=== PATIENT | male | born 1960 | race Caucasian/White ===

== ENCOUNTER 2017-01-08 09:53 | Emergency (ER) | payer OTHER ==
--- NOTE | 2017-01-08 10:32 | ED Physician Documentation ---
PD HPI CHEST PAIN - Stated complaint Stated Complaint: CHEST PAIN - Chief complaint Chief Complaint: Cardiac - History obtained from History obtained from: Patient - History of Present Illness Timing - onset: How many days ago (9) Timing - onset during: Light activity Timing - duration: Days (9) Timing - details: Gradual onset, Still present, Waxing and waning Pain level now: 6 Quality: Pressure, Sharp, Pain Location: Left jaw Radiation: Jaw, Neck Improved by: Rest Worsened by: Other (as the day progresses the pain worsens and is improved with rest) Associated symptoms: Shortness of air Similar symptoms before: Diagnosis (afib) Recently seen: Other (The patient had a cardioversion done in the beginning of December and he was in sinus for about 2 weeks.) - Additional information Additional information: 56 y/o male with a prior history of intermittent afib, DVT and PE is on xarolto and does not tolerate afib. He felt that he went back into afib about 9 days ago and he has pain in his jaw that worsens through the day and is improved in the morning. 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 Review of Systems Constitutional: reports: Fatigue. denies: Fever, Chills Eyes: denies: Decreased vision Ears: denies: Ear pain Nose: denies: Rhinorrhea / runny nose, Congestion Throat: reports: Other (jaw pain on the left). denies: Sore throat Cardiac: denies: Chest pain / pressure, Palpitations Respiratory: reports: Dyspnea. denies: Cough GI: denies: Abdominal Pain, Nausea, Vomiting : denies: Dysuria, Frequency PD PAST MEDICAL HISTORY - Past Medical History Cardiovascular: Deep vein thrombosis, Atrial fibrillation Respiratory: None, Shortness of breath Neuro: None Endocrine/Autoimmune: None GI: Ulcerative colitis : None, Kidney stones, Other HEENT: None Psych: Depression Musculoskeletal: None Derm: None - Past Surgical History Past Surgical History: Yes General: Appendectomy, Colonoscopy Ortho: Arthroscopic surgery, Carpal Tunnel surgery HEENT: Tonsil/Adenoidectomy - Present Medications Home Medications: Ambulatory Orders Medication Instructions Recorded Confirmed Mesalamine [Lialda] 2.4 gm ORAL DAILY 03/15/15 01/08/17 PARoxetine [Paxil] 20 mg ORAL DAILY 03/15/15 01/08/17 Rivaroxaban [Xarelto] 30 mg PO DAILY 09/19/16 01/08/17 Metoprolol Succinate 1 tab PO DAILY 01/08/17 01/08/17 - Allergies Allergies/Adverse Reactions: Allergies Allergy/AdvReac Type Severity Reaction Status Date / Time No Known Drug Allergies Allergy Verified 01/08/17 09:58 - Social History Does the pt smoke?: No Smoking Status: Never smoker Does the pt drink ETOH?: No Does the pt have substance abuse?: No - Immunizations Immunizations are current?: Yes PD ED PE NORMAL - Vitals Vital signs reviewed: Yes (normal ) - General General: Alert and oriented X 3, No acute distress, Well developed/nourished - HEENT HEENT: Atraumatic, PERRL, EOMI - Neck Neck: Supple, no meningeal sign, No bony TTP - Cardiac Cardiac: No murmur, Other (irregularly irregular rate and rhythm with 2/6 holosystolic murmer at LSB. ) - Respiratory Respiratory: No respiratory distress, Clear bilaterally - Abdomen Abdomen: Soft, Non tender - Back Back: No CVA TTP, No spinal TTP - Derm Derm: Normal color, Warm and dry, No rash - Extremities Extremities: No deformity, No edema - Neuro Neuro: No motor deficit, No sensory deficit - Psych Psych: Normal mood, Normal affect Results - Vitals Vitals: Vital Signs - 24 hr 01/08/17 01/08/17 01/08/17 09:55 10:34 11:34 Temperature 36.5 C 36.5 C Heart Rate 84 64 63 Respiratory 18 18 18 Rate Blood Pressure 120/75 118/67 101/86 H O2 Saturation 98 98 97 01/08/17 01/08/17 01/08/17 12:48 12:56 13:03 Temperature Heart Rate 70 74 65 Respiratory 12 18 16 Rate Blood Pressure 111/70 111/70 108/70 O2 Saturation 97 97 2 L 01/08/17 01/08/17 01/08/17 13:05 13:07 13:11 Temperature Heart Rate 77 79 68 Respiratory 16 16 22 Rate Blood Pressure 108/70 105/63 105/63 O2 Saturation 100 100 100 01/08/17 01/08/17 01/08/17 13:14 13:18 13:20 Temperature Heart Rate 75 72 76 Respiratory 18 28 H 22 Rate Blood Pressure 106/62 111/71 O2 Saturation 94 92 01/08/17 01/08/17 01/08/17 13:21 13:30 13:37 Temperature Heart Rate 74 72 78 Respiratory 20 20 20 Rate Blood Pressure 111/75 113/74 119/72 O2 Saturation 94 98 100 01/08/17 01/08/17 14:21 14:54 Temperature 36.6 C Heart Rate 82 73 Respiratory 18 20 Rate Blood Pressure 130/67 129/78 O2 Saturation 98 98 Oxygen O2 Source Room air Oxygen Flow Rate 2 - EKG (time done) 0959 Rate: Rate (enter#) (81) Rhythm: Atrial fibrillation Compare to prior EKG: Unchanged from prior EKG (07-03-16) Computer interpretation: Agree with computer 1322 Rate: Rate (enter#) (74) Rhythm: NSR, LAE, OSIEL Intervals: Prolonged [place] (borderline) Compare to prior EKG: Changed from prior EKG (SPT earlier today the rhythm has changed to sinus s/p cardioversion) Computer interpretation: Agree with computer - Labs Labs: Laboratory Tests 01/08/17 01/08/17 01/08/17 10:29 10:29 10:29 WBC 5.9 RBC 4.43 L Hgb 14.4 Hct 42.0 MCV 94.8 H MCH 32.5 H MCHC 34.3 RDW 13.7 Plt Count 220 MPV 8.1 Neut # 3.8 Lymph # 1.4 L [place] # 0.6 Eos # 0.1 Baso # 0.0 Absolute Nucleated RBC 0.00 Nucleated RBCs 0.0 Sodium 139 Potassium 4.2 Chloride 105 Carbon Dioxide 26 Anion Gap 8.0 BUN 27 H Creatinine 0.9 Estimated GFR (MDRD) 88 L Glucose 100 Calcium 9.3 Total Bilirubin 0.8 AST 24 ALT 30 Alkaline Phosphatase 56 Troponin I < 0.04 B-Natriuretic Peptide Total Protein 6.7 Albumin 3.8 Globulin 2.9 Albumin/Globulin Ratio 1.3 Lipase 12 L TSH Urine Color Urine Clarity Urine pH Ur Specific [place] Urine Protein Urine Glucose (UA) Urine Ketones Urine Occult Blood Urine Nitrite Urine Bilirubin Urine Urobilinogen Ur Leukocyte Esterase Ur Microscopic Review Urine Culture Comments 01/08/17 01/08/17 01/08/17 10:29 10:29 10:34 WBC RBC Hgb Hct MCV MCH MCHC RDW Plt Count MPV Neut # Lymph # [place] # Eos # Baso # Absolute Nucleated RBC Nucleated RBCs Sodium Potassium Chloride Carbon Dioxide Anion Gap BUN Creatinine Estimated GFR (MDRD) Glucose Calcium Total Bilirubin AST ALT Alkaline Phosphatase Troponin I B-Natriuretic Peptide 67 Total Protein Albumin Globulin Albumin/Globulin Ratio Lipase TSH 1.66 Urine Color DARK YELLOW Urine Clarity CLEAR Urine pH 6.5 Ur Specific [place] 1.015 Urine Protein NEGATIVE Urine Glucose (UA) NEGATIVE Urine Ketones TRACE Urine Occult Blood NEGATIVE Urine Nitrite NEGATIVE Urine Bilirubin NEGATIVE Urine Urobilinogen 0.2 (NORMAL) Ur Leukocyte Esterase NEGATIVE Ur Microscopic Review NOT INDICATED Urine Culture Comments NOT INDICATED - Rads (name of study) 2 view chest Radiology: Prelim report reviewed (Impression: Normal two-view chest radiography.), EMP read indepedently, See rad report Procedures - Procedural sedation Sedation prep: Informed consent, Time out completed, PE performed, AHA 2 - mild disease Sedation medications: propofol Patient status during sedation: Responds to tactile, Vitals remained stable, Maintained airway, Recovered uneventfully Sedation recovery: Recovered uneventfully, Back to baseline - IVC sono (time) 1020 Bedside IVC sono: IVC measures (cm) (2.24), IVC collapsed c insp (cm) (1.62), Collapsibility index (0.27), High CVP (borderline) - Cardioversion Attempt 1 Indication: Chest pain, Other (afib) Risks, benefits, alternatives explained to: Pt Prep: IV, O2, head of academic technology, Pulse ox, Airway equip Meds: Propofol CS via: Pads, AP approach Sync: 100j Post cardioversion rhythm: A-fib Performed by: ED Attempt 2 Indication: Chest pain, Other (afib) Risks, benefits, alternatives explained to: Pt Prep: IV, O2, head of academic technology, Pulse ox, Airway equip Meds: Propofol CS via: Pads, AP approach Sync: 150j Post cardioversion rhythm: A-fib Performed by: ED Attempt 3 Indication: Chest pain, Other (afib) Risks, benefits, alternatives explained to: Pt Prep: IV, O2, head of academic technology, Pulse ox, Airway equip Meds: Propofol CS via: Pads, AP approach Sync: 200j Post cardioversion rhythm: A-fib Performed by: ED Attempt 4 Indication: Chest pain, Other (afib) Risks, benefits, alternatives explained to: Pt Prep: IV, O2, head of academic technology, Pulse ox, Airway equip Meds: Propofol CS via: Anterolateral Sync: 200j Post cardioversion rhythm: A-fib Performed by: ED MD #5 Indication: Chest pain, Other (afib) Risks, benefits, alternatives explained to: Pt Prep: IV, O2, head of academic technology, Pulse ox, Airway equip Meds: Propofol CS via: Anterolateral Sync: 300j Post cardioversion rhythm: NSR Performed by: ED MD ANHTONY MEDICAL DECISION MAKING - ED course Complexity details: reviewed old records, reviewed results, re-evaluated patient , considered differential, d/w patient, d/w family ED course: 56 y/o male with symptomatic afib has jaw and chest pain associated with the afib. In consultation with the senior product development scientist Dr. Herrera in [place] [employer] for [place] she recommends cardioversion and follow up or follow up for cardioversion. The patient is symptomatic and would like to do the cardioversion. This is attempted with AP pads synconized and this is unsuccessful in 3 attempts with 100, 150 and 200 larry. The pads were switched to kayce-lateral and 200j failed and 300j was successful. The patient tolerated this well and felt improved at the conclusion of the cardioversion. We will take him off work for 5 days. Departure - Departure Disposition: 01 Home, Self Care Clinical Impression: Atrial fibrillation Qualifiers: Atrial fibrillation type: paroxysmal Qualified Code(s): I48.0 - Paroxysmal atrial fibrillation Condition: Stable Instructions: ED Paroxysmal Atrial Flutter, ED Cardioversion Follow-Up: Petros Lockett MD [Primary Care Provider] - Balaji Pa MD [Provider Admit Priv/Credential] - Forms: Activity restrictions Discharge Date/Time: 01/08/17 14:54
[2017-01-08 10:33] LABS: BASOPHILS % (AUTO) 0.6 %; EOSINOPHILS # (AUTO) 0.1 10^3/uL (0.0-0.7); EOSINOPHILS % (AUTO) 1.9 %; HGB - HEMOGLOBIN 14.4 g/dL (14.0-18.0); LYMPHOCYTES # (AUTO) 1.4 10^3/uL (1.5-3.5); LYMPHOCYTES % (AUTO) 23.3 %; MEAN CORPUSCULAR HEMOGLOBIN 32.5 pg (27.0-31.0); MEAN CORPUSCULAR HGB CONC 34.3 g/dL (32.0-36.0); MEAN CORPUSCULAR VOLUME 94.8 fL (80.0-94.0); MEAN PLATELET VOLUME 8.1 fL (7.4-11.4); MONOCYTES # (AUTO) 0.6 10^3/uL (0.0-1.0); MONOCYTES % (AUTO) 9.8 %; NEUTROPHILS # (AUTO) 3.8 10^3/uL (1.5-6.6); NEUTROPHILS % (AUTO) 64.4 %; RED BLOOD COUNT 4.43 10^6/uL (4.70-6.10); RED CELL DISTRIBUTION WIDTH 13.7 % (12.0-15.0); UNCORRECTED WHITE BLOOD COUNT 5.9 x10^3/uL; WHITE BLOOD COUNT 5.9 x10^3/uL (4.8-10.8)
[2017-01-08 10:52] LABS: BILIRUBIN,URINE NEGATIVE (NEGATIVE); PH,URINE 6.5 PH (5.0-7.5)
[2017-01-08 10:54] LABS: UA CHARGE (STRIP ONLY) YES; UR CULTURE IF IND NOT INDICATED
--- NOTE | 2017-01-08 10:57 | XRAY Preliminary Report ---
Exam: XR Chest 2 View PA/LAT IMPRESSION: Normal 2-view chest radiography. [facility] SITE ID: [id number]
--- NOTE | 2017-01-08 10:59 | XRAY Report ---
EXAM: CHEST RADIOGRAPHY EXAM DATE: 01/08/2017 10:42 AM. CLINICAL HISTORY: Chest pain . COMPARISON: 07/03/2016. TECHNIQUE: 2 views. FINDINGS: Lungs/Pleura: No focal opacities evident. No pleural effusion. No pneumothorax. Normal volumes. Mediastinum: Heart and mediastinal contours are unremarkable. Other: None. IMPRESSION: Normal 2-view chest radiography. [facility] Referring Provider Line: [phone] SITE ID: [id number]
[2017-01-08 11:13] LABS: ALBUMIN/GLOBULIN RATIO 1.3 (1.0-2.2); BILIRUBIN,TOTAL 0.8 mg/dL (0.2-1.0); CALCIUM 9.3 mg/dL (8.5-10.3); CREATININE 0.9 mg/dL (0.6-1.2); POTASSIUM 4.2 mmol/L (3.5-5.0); TOTAL PROTEIN 6.7 g/dL (6.7-8.2)
[2017-01-08] MEDS ORDERED: PROPOFOL 200 MG/20 ML VIAL IVP ONE ×2 (12:52→13:15)
[2017-01-08 14:59] VITALS: BP 129/78
== END 2017-01-08 14:54 | disposition home or self-care (01) ==
LOC: ED 09:53
DX: I48.0 Paroxysmal atrial fibrillation (principal); Z79.01 Long term (current) use of anticoagulants; Z86.718 Personal history of other venous thrombosis and embolism; Z86.711 Personal history of pulmonary embolism; Z87.19 Personal history of other diseases of the digestive system; Z87.442 Personal history of urinary calculi
CPT/HCPCS: 36415; 71020; 80053; 81001; 81003; 83690; 83880; 84443; 84484; 85025; 87086; 92960; 93005; 93010; 94770; 99284

== ENCOUNTER 2017-02-08 15:04 | Outpatient (CLI) | payer OTHER ==
[2017-02-08 15:25] LABS: BASOPHILS % (AUTO) 0.7 %; EOSINOPHILS # (AUTO) 0.3 10^3/uL (0.0-0.7); EOSINOPHILS % (AUTO) 5.2 %; HCT - HEMATOCRIT 42.4 % (42.0-52.0); HGB - HEMOGLOBIN 14.4 g/dL (14.0-18.0); LYMPHOCYTES # (AUTO) 1.6 10^3/uL (1.5-3.5); LYMPHOCYTES % (AUTO) 24.8 %; MEAN CORPUSCULAR HEMOGLOBIN 32.5 pg (27.0-31.0); MEAN CORPUSCULAR HGB CONC 33.9 g/dL (32.0-36.0); MEAN CORPUSCULAR VOLUME 95.8 fL (80.0-94.0); MEAN PLATELET VOLUME 8.4 fL (7.4-11.4); MONOCYTES # (AUTO) 0.7 10^3/uL (0.0-1.0); MONOCYTES % (AUTO) 10.4 %; NEUTROPHILS # (AUTO) 3.8 10^3/uL (1.5-6.6); NEUTROPHILS % (AUTO) 58.9 %; RED BLOOD COUNT 4.43 10^6/uL (4.70-6.10); RED CELL DISTRIBUTION WIDTH 13.6 % (12.0-15.0); UNCORRECTED WHITE BLOOD COUNT 6.5 x10^3/uL; WHITE BLOOD COUNT 6.5 x10^3/uL (4.8-10.8)
[2017-02-08 15:33] LABS: CALCIUM 9.3 mg/dL (8.5-10.3); CREATININE 1.3 mg/dL (0.6-1.2); POTASSIUM 4.5 mmol/L (3.5-5.0)
[2017-02-08 16:18] LABS: INR 1.6 (0.8-1.2); PT - PROTHROMBIN TIME 18.2 secs (9.9-12.6)
[2017-02-08 16:25] LABS: PARTIAL THROMBOPLASTIN TIME 35.8 secs (24.9-33.3)
== END 2017-02-08 15:05 | disposition home or self-care (01) ==
LOC: LAB 15:04
PROVIDERS: ATTEND Internal Medicine Cardiovascular Disease
DX: I48.0 Paroxysmal atrial fibrillation (principal)
CPT/HCPCS: 36415; 80048; 85025; 85610; 85730; 93005

== ENCOUNTER 2017-04-03 08:22 | Day surgery (SDC) | payer OTHER ==
[2017-04-03] MEDS ORDERED: LACTATED RINGERS 1,000 ML IV ONE (08:43)
[2017-04-03 10:33] VITALS: BP 100/46
== END 2017-04-03 08:23 | disposition home or self-care (01) ==
LOC: SDS 08:22
PROVIDERS: ATTEND Internal Medicine
PROC: 0DBE8ZX Excision of Large Intestine, Via Natural or Artificial Opening Endoscopic, Diagnostic (ICD-10-PCS; principal; 2017-04-03 09:30)
DX: K51.90 Ulcerative colitis, unspecified, without complications (principal); K57.30 Diverticulosis of large intestine without perforation or abscess without bleeding; K64.8 Other hemorrhoids; I48.91 Unspecified atrial fibrillation; Z79.01 Long term (current) use of anticoagulants; Z86.010 Personal history of colon polyps
CPT/HCPCS: 45380; 88305; J7120

== ENCOUNTER 2017-05-30 08:26 | Outpatient (CLI) | payer OTHER | END 2017-05-30 08:27 | disposition short-term general hospital (02) | LOC: EMS 08:26 | PROVIDERS: ATTEND Surgery | DX: R07.9 Chest pain, unspecified (principal); R55 Syncope and collapse | CPT/HCPCS: A0170; A0425; A0427 ==

== ENCOUNTER 2017-06-26 12:31 | Outpatient (CLI) | payer OTHER ==
[2017-06-26 13:06] LABS: CALCIUM 8.7 mg/dL (8.5-10.3); CREATININE 0.8 mg/dL (0.6-1.2); POTASSIUM 3.7 mmol/L (3.5-5.0)
== END 2017-06-26 12:32 | disposition home or self-care (01) ==
LOC: LAB 12:31
PROVIDERS: ATTEND Internal Medicine
DX: K51.90 Ulcerative colitis, unspecified, without complications (principal)
CPT/HCPCS: 36415; 80048

== ENCOUNTER 2017-07-10 13:23 | Outpatient (CLI) | payer OTHER ==
[2017-07-10 13:49] LABS: BASOPHILS % (AUTO) 0.8 %; EOSINOPHILS # (AUTO) 0.3 10^3/uL (0.0-0.7); EOSINOPHILS % (AUTO) 5.1 %; HCT - HEMATOCRIT 42.3 % (42.0-52.0); HGB - HEMOGLOBIN 14.6 g/dL (14.0-18.0); LYMPHOCYTES # (AUTO) 1.8 10^3/uL (1.5-3.5); LYMPHOCYTES % (AUTO) 32.1 %; MEAN CORPUSCULAR HGB CONC 34.4 g/dL (32.0-36.0); MEAN CORPUSCULAR VOLUME 95.8 fL (80.0-94.0); MEAN PLATELET VOLUME 8.2 fL (7.4-11.4); MONOCYTES # (AUTO) 0.6 10^3/uL (0.0-1.0); MONOCYTES % (AUTO) 10.4 %; NEUTROPHILS # (AUTO) 2.9 10^3/uL (1.5-6.6); NEUTROPHILS % (AUTO) 51.6 %; NUCLEATED RED BLOOD CELLS AUTO 0.1 /100WBC; RED BLOOD COUNT 4.42 10^6/uL (4.70-6.10); RED CELL DISTRIBUTION WIDTH 13.4 % (12.0-15.0); UNCORRECTED WHITE BLOOD COUNT 5.6 x10^3/uL; WHITE BLOOD COUNT 5.6 x10^3/uL (4.8-10.8)
== END 2017-07-10 13:24 | disposition home or self-care (01) ==
LOC: LAB 13:23
PROVIDERS: ATTEND Internal Medicine
DX: K51.90 Ulcerative colitis, unspecified, without complications (principal)
CPT/HCPCS: 85025; 86140

== ENCOUNTER 2017-10-17 07:23 | Outpatient (CLI) | payer OTHER ==
[2017-10-17 13:10] LABS: BUN - BLOOD UREA NITROGEN 20 mg/dL (6-20); CALCIUM 9.1 mg/dL (8.5-10.3); CARBON DIOXIDE - CO2 27 mmol/L (21-32); CHLORIDE 105 mmol/L (101-111); GFR - MDRD 77 (>89); GLUCOSE 101 mg/dL (70-100); SODIUM 139 mmol/L (135-145)
[2017-10-17 13:11] LABS: CRP - C-REACTIVE PROTEIN < 1.0 mg/dL (0-1.0)
== END 2017-10-17 07:24 | disposition home or self-care (01) ==
LOC: LAB.F 07:23
PROVIDERS: ATTEND Internal Medicine
DX: K51.90 Ulcerative colitis, unspecified, without complications (principal)
CPT/HCPCS: 36415; 80048; 86140

== ENCOUNTER 2017-11-01 07:18 | Outpatient (CLI) | payer OTHER ==
[2017-11-01 10:26] LABS: EOSINOPHILS # (AUTO) 0.2 10^3/uL (0.0-0.7); EOSINOPHILS % (AUTO) 4.8 %; HGB - HEMOGLOBIN 14.8 g/dL (14.0-18.0); LYMPHOCYTES # (AUTO) 1.4 10^3/uL (1.5-3.5); LYMPHOCYTES % (AUTO) 31.8 %; MEAN CORPUSCULAR HEMOGLOBIN 32.5 pg (27.0-31.0); MEAN CORPUSCULAR VOLUME 95.6 fL (80.0-94.0); MEAN PLATELET VOLUME 8.5 fL (7.4-11.4); MONOCYTES # (AUTO) 0.6 10^3/uL (0.0-1.0); MONOCYTES % (AUTO) 12.8 %; NEUTROPHILS # (AUTO) 2.2 10^3/uL (1.5-6.6); NEUTROPHILS % (AUTO) 49.6 %; PLT - PLATELET COUNT 239 10^3/uL (130-450); RED BLOOD COUNT 4.54 10^6/uL (4.70-6.10); RED CELL DISTRIBUTION WIDTH 13.4 % (12.0-15.0); WHITE BLOOD COUNT 4.5 x10^3/uL (4.8-10.8)
[2017-11-01 10:29] LABS: ALBUMIN 4.2 g/dL (3.2-5.5); ALBUMIN/GLOBULIN RATIO 1.4 (1.0-2.2); ALKALINE PHOSPHATASE 53 IU/L (42-121); ALT ALANINE AMINOTRANSFERASE 25 IU/L (10-60); AST ASPARTATE AMINOTRANSFERASE 24 IU/L (10-42); BILIRUBIN,TOTAL 0.8 mg/dL (0.2-1.0); BUN - BLOOD UREA NITROGEN 26 mg/dL (6-20); CARBON DIOXIDE - CO2 25 mmol/L (21-32); CHLORIDE 106 mmol/L (101-111); CHOL/HDL RATIO 4.8 (<5.0); CHOLESTEROL 211 mg/dL; CREATININE 0.9 mg/dL (0.6-1.2); GFR - MDRD 87 (>89); GLUCOSE 99 mg/dL (70-100); HDL CHOLESTEROL 44 mg/dL; LDL CHOLESTEROL,CALCULATED 154 mg/dL; LDL/HDL RATIO 3.5 (<3.6); SODIUM 137 mmol/L (135-145); TOTAL PROTEIN 7.1 g/dL (6.7-8.2); VLDL CHOLESTEROL 13 mg/dL
== END 2017-11-01 07:19 | disposition home or self-care (01) ==
LOC: LAB.F 07:18
PROVIDERS: ATTEND Family Medicine
DX: Z12.5 Encounter for screening for malignant neoplasm of prostate (principal); Z51.81 Encounter for therapeutic drug level monitoring; E78.00 Pure hypercholesterolemia, unspecified; I25.10 Atherosclerotic heart disease of native coronary artery without angina pectoris
CPT/HCPCS: 36415; 80053; 80061; 83721; 84153; 84443; 85025

== ENCOUNTER 2017-12-14 21:06 | Emergency (ER) | payer OTHER ==
[2017-12-14 21:11] VITALS: BP 126/62
[2017-12-14] MEDS ORDERED: TETANUS/DIPHTHERIA/PERTUSSIS 0.5 ML SYRINGE IM ONE (21:13)
[2017-12-14] MEDS ORDERED: BUFFERED LIDOCAINE 10 ML SYRINGE SUBQ STA (21:14)
--- NOTE | 2017-12-14 21:16 | ED Physician Documentation ---
PD HPI UPPER EXT INJURY - Stated complaint Stated Complaint: ARM LAC - Chief complaint Chief Complaint: Laceration - History obtained from History obtained from: Patient - History of Present Illness Location: Other (Right-handed gentleman who is not up-to-date on tetanus was working at home and accidentally stabbed himself using pruning brian to the right forearm just prior to arrival.) Review of Systems Constitutional: denies: Fever, Chills GI: denies: Abdominal Pain, Nausea, Vomiting Skin: reports: Reviewed and negative PD PAST MEDICAL HISTORY - Past Medical History Cardiovascular: Deep vein thrombosis, Atrial fibrillation Respiratory: None, Shortness of breath Endocrine/Autoimmune: None GI: Ulcerative colitis : None, Kidney stones, Other HEENT: None Psych: Depression Musculoskeletal: None Derm: None - Past Surgical History Past Surgical History: Yes General: Appendectomy, Colonoscopy Ortho: Arthroscopic surgery, Carpal Tunnel surgery HEENT: Tonsil/Adenoidectomy - Present Medications Home Medications: Ambulatory Orders Medication Instructions Recorded Confirmed Mesalamine [Lialda] 4.8 gm ORAL DAILY 03/15/15 07/10/17 PARoxetine [Paxil] 20 mg ORAL DAILY 03/15/15 07/10/17 Rivaroxaban [Xarelto] 30 mg PO DAILY 09/19/16 07/10/17 Metoprolol Succinate 0.5 tab PO DAILY 01/08/17 07/10/17 Flecainide [Tambocar] 100 mg PO BID 03/14/17 07/10/17 Atorvastatin [Lipitor] 1 tab PO DAILY 06/19/17 07/10/17 - Allergies Allergies/Adverse Reactions: Allergies Allergy/AdvReac Type Severity Reaction Status Date / Time No Known Drug Allergies Allergy Verified 12/14/17 21:10 - Social History Does the pt smoke?: No Smoking Status: Never smoker Does the pt drink ETOH?: No Does the pt have substance abuse?: No - Immunizations Immunizations are current?: Yes PD ED PE NORMAL - Vitals Vital signs reviewed: Yes - General General: Alert and oriented X 3, No acute distress - Extremities Extremities: Other (1cm laceration to mid medial anterior Forearm without NV compromise.) - Neuro Neuro: Alert and oriented X 3, Normal speech Results - Vitals Vitals: Vital Signs - 24 hr 12/14/17 21:08 Temperature 36.6 C Heart Rate 73 Respiratory 16 Rate Blood Pressure 126/62 O2 Saturation 98 Oxygen O2 Source Room air Procedures - Laceration (location) Right forearm Length in cm: 1 Wound type: Linear Neurovascular status: Sensory intact, Motor intact, Vascular intact Anesthesia: Lidocaine 1%, With bicarb Wound Preparation: Chlorhexadine, Irrigated copiously NS Skin layer closure: Nylon, Size #-0 - enter number (4-0), Sutures - enter # (3) Other: Patient tolerated well, No complications, Neurovascular intact, Tetanus booster given Complexity: Simple Departure - Departure Disposition: 01 Home, Self Care Clinical Impression: Laceration Condition: Good Record reviewed to determine appropriate education?: Yes Instructions: ED Laceration All Comments: Come back for any signs of infection which would include: Redness, swelling, drainage, increased pain, or fevers. Follow-up with your physician in 10-14 days for suture removal.
== END 2017-12-14 21:44 | disposition home or self-care (01) ==
LOC: ED 21:06
DX: S51.811A Laceration without foreign body of right forearm, initial encounter (principal); W27.1XXA Contact with garden tool, initial encounter; Y92.009 Unspecified place in unspecified non-institutional (private) residence as the place of occurrence of the external cause; I48.91 Unspecified atrial fibrillation; Z79.01 Long term (current) use of anticoagulants; Z86.718 Personal history of other venous thrombosis and embolism; Z87.442 Personal history of urinary calculi; Z87.19 Personal history of other diseases of the digestive system; Z23 Encounter for immunization
CPT/HCPCS: 12001; 90471; 99283

== ENCOUNTER 2017-12-31 15:09 | Outpatient (CLI) | payer OTHER | END 2017-12-31 15:10 | disposition home or self-care (01) | LOC: LAB.F 15:09 | PROVIDERS: ATTEND Physician Assistant Medical | DX: E88.01 Alpha-1-antitrypsin deficiency (principal) | CPT/HCPCS: 36415; 81599; 82103 ==

== ENCOUNTER 2018-01-01 08:35 | Outpatient (CLI) | payer OTHER ==
--- NOTE | 2018-01-01 13:06 | XRAY Report ---
TWO VIEW CHEST: 01/01/2018 CLINICAL INDICATION: Shortness of breath. COMPARISON: 01/08/2017. FINDINGS: Frontal and lateral views of the chest demonstrate a normal cardiac silhouette. The lungs are clear. No effusion or pneumothorax is present. IMPRESSION: NORMAL CHEST, UNCHANGED. TD: 01/01/2018 12:36
== END 2018-01-01 08:36 | disposition home or self-care (01) ==
LOC: DI.S 08:35
PROVIDERS: ATTEND Physician Assistant Medical
DX: R06.02 Shortness of breath (principal)
CPT/HCPCS: 71046

== ENCOUNTER 2018-06-02 07:14 | Outpatient (CLI) | payer OTHER ==
[2018-06-02 10:48] LABS: ALBUMIN 4.2 g/dL (3.2-5.5); ALBUMIN/GLOBULIN RATIO 1.4 (1.0-2.2); ALKALINE PHOSPHATASE 66 IU/L (42-121); ALT ALANINE AMINOTRANSFERASE 32 IU/L (10-60); AST ASPARTATE AMINOTRANSFERASE 28 IU/L (10-42); BUN - BLOOD UREA NITROGEN 21 mg/dL (6-20); CARBON DIOXIDE - CO2 29 mmol/L (21-32); CHLORIDE 103 mmol/L (101-111); CHOL/HDL RATIO 3.7 (<5.0); CHOLESTEROL 186 mg/dL; CREATININE 0.8 mg/dL (0.6-1.2); GFR - MDRD 100 (>89); GLUCOSE 98 mg/dL (70-100); HDL CHOLESTEROL 50 mg/dL; LDL CHOLESTEROL,CALCULATED 122 mg/dL; LDL/HDL RATIO 2.4 (<3.6); SODIUM 139 mmol/L (135-145); TOTAL PROTEIN 7.2 g/dL (6.7-8.2); VLDL CHOLESTEROL 14 mg/dL
[2018-06-02 10:49] LABS: HGB - HEMOGLOBIN 14.8 g/dL (14.0-18.0); MEAN CORPUSCULAR HEMOGLOBIN 33.3 pg (27.0-31.0); MEAN CORPUSCULAR HGB CONC 34.7 g/dL (32.0-36.0); MEAN CORPUSCULAR VOLUME 96.2 fL (80.0-94.0); MEAN PLATELET VOLUME 8.6 fL (7.4-11.4); RED BLOOD COUNT 4.44 10^6/uL (4.70-6.10); RED CELL DISTRIBUTION WIDTH 13.2 % (12.0-15.0); WHITE BLOOD COUNT 4.3 x10^3/uL (4.8-10.8)
== END 2018-06-02 07:15 | disposition home or self-care (01) ==
LOC: LAB.F 07:14
PROVIDERS: ATTEND Internal Medicine
DX: E78.00 Pure hypercholesterolemia, unspecified (principal); Z79.01 Long term (current) use of anticoagulants
CPT/HCPCS: 36415; 80053; 80061; 83721; 85027

== ENCOUNTER 2019-07-14 08:00 | Outpatient (CLI) | payer OTHER ==
[2019-07-15 10:49] LABS: BASOPHILS % (AUTO) 1.1 %; EOSINOPHILS # (AUTO) 0.2 10^3/uL (0.0-0.7); EOSINOPHILS % (AUTO) 4.1 %; HGB - HEMOGLOBIN 15.3 g/dL (14.0-18.0); LYMPHOCYTES # (AUTO) 1.5 10^3/uL (1.5-3.5); LYMPHOCYTES % (AUTO) 40.5 %; MEAN CORPUSCULAR HEMOGLOBIN 33.3 pg (27.0-31.0); MEAN PLATELET VOLUME 10.4 fL (7.4-11.4); MONOCYTES # (AUTO) 0.4 10^3/uL (0.0-1.0); MONOCYTES % (AUTO) 11.6 %; NEUTROPHILS # (AUTO) 1.6 10^3/uL (1.5-6.6); NEUTROPHILS % (AUTO) 42.4 %; PLT - PLATELET COUNT 266 10^3/uL (130-450); RED BLOOD COUNT 4.59 10^6/uL (4.70-6.10); RED CELL DISTRIBUTION WIDTH 12.8 % (12.0-15.0); WHITE BLOOD COUNT 3.7 x10^3/uL (4.8-10.8)
[2019-07-15 11:05] LABS: ALBUMIN 4.2 g/dL (3.2-5.5); ALBUMIN/GLOBULIN RATIO 1.4 (1.0-2.2); ALKALINE PHOSPHATASE 62 IU/L (42-121); ALT ALANINE AMINOTRANSFERASE 22 IU/L (10-60); AST ASPARTATE AMINOTRANSFERASE 23 IU/L (10-42); BILIRUBIN,TOTAL 1.1 mg/dL (0.2-1.0); BUN - BLOOD UREA NITROGEN 27 mg/dL (6-20); CALCIUM 9.3 mg/dL (8.5-10.3); CARBON DIOXIDE - CO2 30 mmol/L (21-32); CHLORIDE 105 mmol/L (101-111); CHOL/HDL RATIO 4.6 (<5.0); CHOLESTEROL 214 mg/dL; GFR - MDRD 77 (>89); GLUCOSE 108 mg/dL (70-100); HDL CHOLESTEROL 47 mg/dL; LDL CHOLESTEROL,CALCULATED 153 mg/dL; LDL/HDL RATIO 3.3 (<3.6); SODIUM 142 mmol/L (135-145); TOTAL PROTEIN 7.2 g/dL (6.7-8.2); VLDL CHOLESTEROL 14 mg/dL
[2019-07-15 11:09] LABS: PSA FREE 0.22 ng/mL (0.16-2.81)
[2019-07-15 11:10] LABS: PSA TOTAL 0.56 ng/mL (0.000-2.000)
[2019-07-15 21:48] LABS: TRICHOMONAS VAGINALIS DNA NEGATIVE (NEGATIVE)
== END 2019-07-14 23:59 | disposition home or self-care (01) ==
LOC: LAB.R 08:00
PROVIDERS: ATTEND Registered Nurse
DX: Z00.00 Encounter for general adult medical examination without abnormal findings (principal); R30.0 Dysuria; N41.9 Inflammatory disease of prostate, unspecified; E78.00 Pure hypercholesterolemia, unspecified; I48.91 Unspecified atrial fibrillation; K51.90 Ulcerative colitis, unspecified, without complications
CPT/HCPCS: 36415; 80053; 80061; 83721; 84153; 84154; 84443; 85025; 87086; 87491; 87591; 87661

== ENCOUNTER 2019-10-26 07:13 | Outpatient (CLI) | payer OTHER ==
[2019-10-26 10:22] LABS: BASOPHILS % (AUTO) 0.4 %; EOSINOPHILS # (AUTO) 0.2 10^3/uL (0.0-0.7); EOSINOPHILS % (AUTO) 3.7 %; LYMPHOCYTES # (AUTO) 1.9 10^3/uL (1.5-3.5); LYMPHOCYTES % (AUTO) 40.7 %; MEAN CORPUSCULAR HEMOGLOBIN 33.3 pg (27.0-31.0); MEAN CORPUSCULAR HGB CONC 34.3 g/dL (32.0-36.0); MEAN CORPUSCULAR VOLUME 96.9 fL (80.0-94.0); MEAN PLATELET VOLUME 10.4 fL (7.4-11.4); MONOCYTES # (AUTO) 0.6 10^3/uL (0.0-1.0); MONOCYTES % (AUTO) 13.4 %; NEUTROPHILS # (AUTO) 1.9 10^3/uL (1.5-6.6); NEUTROPHILS % (AUTO) 41.6 %; PLT - PLATELET COUNT 255 10^3/uL (130-450); RED BLOOD COUNT 4.51 10^6/uL (4.70-6.10); RED CELL DISTRIBUTION WIDTH 13.2 % (12.0-15.0); WHITE BLOOD COUNT 4.6 x10^3/uL (4.8-10.8)
[2019-10-26 10:36] LABS: ALBUMIN 4.2 g/dL (3.2-5.5); ALBUMIN/GLOBULIN RATIO 1.4 (1.0-2.2); CALCIUM 9.2 mg/dL (8.5-10.3); CREATININE 0.8 mg/dL (0.6-1.2); TOTAL PROTEIN 7.2 g/dL (6.7-8.2)
== END 2019-10-26 07:14 | disposition home or self-care (01) ==
LOC: LAB.S 07:13
PROVIDERS: ATTEND Physician Assistant Medical
DX: D72.819 Decreased white blood cell count, unspecified (principal); R89.9 Unspecified abnormal finding in specimens from other organs, systems and tissues
CPT/HCPCS: 36415; 80053; 85025

== ENCOUNTER 2020-07-19 14:09 | Outpatient (CLI) | payer OTHER ==
[2020-07-19 15:12] VITALS: BP 132/80
--- NOTE | 2020-07-19 15:12 | SLEEP CARE CONSULTATION ---
Information from patient questionnaire entered by Lashonda Smith. I have reviewed and concur with the information entered by Lashonda Smith. This document represents the service I personally performed and the decisions made by me, Helene Eli ARNP. History of Present Illness Service Date and Time: 07/19/2020 1409 Reason for Visit: New patient Chief Complaint: reports: Unrefreshed sleep, Snoring (just a little), Excessive daytime sleepiness, Observed pauses in breathing, Fatigue, Frequent awakenings at night. denies: Insomnia Date of Onset: on and off for 15 years Usual bedtime: 10:30 pm Time it takes to fall asleep: 15 - 20 minutes Snores at night: Yes (sometimes) Observed to quit breathing while asleep: Yes Sleeps alone due to snoring: No Number of times waking at night: not sure Reasons for waking at night: reports: Gasping for air, Bathroom. denies: Choking, Snoring Toss, Turn, or Twitch while sleeping: Yes Recalls having dreams: Yes Usually gets out of bed at: 6:30 am Feels refreshed in the morning: No Morning headache: No Sleepy or fatigued during the day: Yes Ever fallen asleep while driving: No Takes day naps: Yes (on weekends) Dreams during day naps: No Prior sleep studies: No Additional HPI information: I had the pleasure of seeing BERTA OMALLEY today regarding the possibility of him having a sleep disorder. His current complaints are observed pauses in breathing, frequent night awakenings, unrefreshed sleep, excessive daytime sleepiness and fatigue. He states his new has told him he snores lightly but he has pauses in breathing. He states that it is for the count of 8 and then he moves his leg and gasps for air. He states he did have an ablation for atrial fibrillation three years ago and is currently on Xarelto for history of DVTs and PE. - Parasomnia Symptoms Ever been unable to move upon waking from sleep: No Walks in sleep: No Talks in sleep: Yes Ever acted out dreams in sleep: Yes (years ago when really tired) Ever felt weak in the knees when startled or emotional: No Bothered by creepy, crawly, restless sensations in legs: Yes Problems with memory or concentration: Yes (just tired) Subjective Initial [place] Sleepiness Scale score: 14 (in 2020) Past Medical History Past Medical History: reports: Arrythmia (Atrial fibrillation in 2017 and had ablation, no longer has this; hx of PVCs this year), Anxiety, Depression, GERD, Other (ulcerative colitus, blood thinner for pulmonary embolism from DVT in 2017). 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 Patient is and lives in [place] Have you smoked in the past 12 months: No Alcohol use: Yes Alcohol amount and frequency: very little once a week Caffeine use: Yes Caffeine amount and frequency: not much, tea Family History Family history of sleep disordered breathing: No Allergies and Home Medications Drug allergies reviewed: Yes (NKDA) Home medication list reviewed: Yes Allergy and home medication list: Lialda antacid peroxatine xarelto Review of Systems Weight gain over past 5 years: 30 Cardiovascular: reports: other (PVC when tired). denies: high blood pressure Gastrointestinal: reports: heartburn Urinary: reports: frequency Neurological: denies: headaches, seizure Psychiatric: reports: anxiety, depression. denies: claustrophobia Ear/Nose/Throat: reports: sinus problems (eustachian tube clogs a lot), tonsillectomy, wisdom teeth removed. denies: nasal congestion, nose bleeds, dry mouth/throat Endocrine: reports: increased urination Musculoskeletal: reports: joint pain, neck pain, back pain, muscle pain or cr amping Immunologic: denies: allergies to food or environment Physical Exam Blood Pressure: 132/80 Cuff size: long Heart Rate: 81 O2 Saturation: 96 Height: 6 ft 1 in Weight: 223 lb Body Mass Index: 29.4 BMI Classification: Overweight Neck circumference: 15.25 (inches) Nostrils: patent to airflow Turbinates: swollen Septum: midline Mouth and throat: narrow oropharynx Uvula visualization: 50% Mallampati Class II Tongue: normal in size Tonsils: absent bilaterally Neck: normal w/o lymphadenopathy or thyromegaly Heart: regular rate and rhythm Lungs: clear bilaterally Impression and Plan 1. Suspected Obstructive Sleep Apnea-Hypopnea Syndrome, as suggested by a history of irregular snoring, observed cessation of breath while asleep, gasping or choking in sleep, frequent awakening during the night, unrefreshed sleep, cognitive impairment, and excessive daytime sleepiness. Narrow oropharynx and obesity are common predisposing factors for obstructive sleep apnea-hypopnea syndrome. I recommend proceeding to polysomnography to confirm the diagnosis and to assess severity. If the patient has significant sleep disordered breathing, a manual CPAP titration study will also be performed to find the optimal treatment pressure. I informed the patient of what the sleep studies involve and after some discussion, obtained agreement to proceed. The pathophysiology of obstructive sleep apnea-hypopnea syndrome was discussed with the patient and health risks of cardiovascular and cerebrovascular disease if not treated. AAS brochure for obstructive sleep apnea-hypopnea syndrome given and reviewed. Risks of drowsy driving discussed in detail and patient advised to avoid long distance driving and to thread puller at the first sign of drowsiness. Patient agreed to plan. * Schedule polysomnography +- manual CPAP titration study. * Avoid long distance driving or driving when feeling sleepy. * Avoid alcohol, sedative and muscle relaxant around bedtime. * Attempt to lose weight. * Review instructions provided by trained office staff on how to prepare for the sleep study. * Return for follow-up after sleep study completed. Counseling Topics: Weight loss health impact Visit Type: In Office Time Spent with Patient (minutes): 30 Provider Statement: I spent 100% of the Face to Face Visit with the patient with greater than 50% spent counseling the patient and coordination of care.
== END 2020-07-19 14:10 | disposition home or self-care (01) ==
LOC: SC 14:09
PROVIDERS: ATTEND Nurse Practitioner Family
DX: G47.10 Hypersomnia, unspecified (principal); R41.89 Other symptoms and signs involving cognitive functions and awareness; G47.8 Other sleep disorders; R06.81 Apnea, not elsewhere classified; R06.83 Snoring; E66.3 Overweight; Z68.29 Body mass index [BMI] 29.0-29.9, adult
CPT/HCPCS: 99203; 99212

== ENCOUNTER 2020-07-27 09:53 | Outpatient (CLI) | payer OTHER | END 2020-07-27 09:54 | disposition home or self-care (01) | LOC: SC 09:53 | PROVIDERS: ATTEND Nurse Practitioner Family | DX: G47.10 Hypersomnia, unspecified (principal); G47.8 Other sleep disorders; E66.3 Overweight; Z68.30 Body mass index [BMI] 30.0-30.9, adult | CPT/HCPCS: 95806 ==

== ENCOUNTER 2020-08-02 10:18 | Outpatient (CLI) | payer OTHER | END 2020-08-02 10:19 | disposition home or self-care (01) | LOC: COV 10:18 | PROVIDERS: ATTEND Family Medicine | DX: Z20.828 Contact with and (suspected) exposure to other viral communicable diseases (principal) ==

== ENCOUNTER 2020-11-01 07:22 | Outpatient (CLI) | payer OTHER ==
[2020-11-01 15:04] LABS: BASOPHILS # (AUTO) 0.1 10^3/uL (0.0-0.1); BASOPHILS % (AUTO) 1.2 %; EOSINOPHILS # (AUTO) 0.2 10^3/uL (0.0-0.7); HCT - HEMATOCRIT 42.5 % (42.0-52.0); LYMPHOCYTES # (AUTO) 1.7 10^3/uL (1.5-3.5); LYMPHOCYTES % (AUTO) 38.9 %; MEAN CORPUSCULAR HEMOGLOBIN 31.7 pg (27.0-31.0); MEAN CORPUSCULAR HGB CONC 32.9 g/dL (32.0-36.0); MEAN CORPUSCULAR VOLUME 96.2 fL (80.0-94.0); MEAN PLATELET VOLUME 10.6 fL (7.4-11.4); MONOCYTES # (AUTO) 0.5 10^3/uL (0.0-1.0); MONOCYTES % (AUTO) 11.6 %; NEUTROPHILS # (AUTO) 1.8 10^3/uL (1.5-6.6); NEUTROPHILS % (AUTO) 43.1 %; PLT - PLATELET COUNT 250 10^3/uL (130-450); RED BLOOD COUNT 4.42 10^6/uL (4.70-6.10); RED CELL DISTRIBUTION WIDTH 13.8 % (12.0-15.0); WHITE BLOOD COUNT 4.2 x10^3/uL (4.8-10.8)
[2020-11-01 15:27] LABS: ALBUMIN 4.1 g/dL (3.2-5.5); ALBUMIN/GLOBULIN RATIO 1.4 (1.0-2.2); ALKALINE PHOSPHATASE 59 IU/L (42-121); ALT ALANINE AMINOTRANSFERASE 25 IU/L (10-60); AST ASPARTATE AMINOTRANSFERASE 25 IU/L (10-42); BILIRUBIN,TOTAL 1.1 mg/dL (0.2-1.0); BUN - BLOOD UREA NITROGEN 25 mg/dL (6-20); CALCIUM 9.4 mg/dL (8.5-10.3); CARBON DIOXIDE - CO2 31 mmol/L (21-32); CHLORIDE 102 mmol/L (101-111); CHOL/HDL RATIO 5.5 (<5.0); CHOLESTEROL 253 mg/dL; CREATININE 0.8 mg/dL (0.6-1.2); GFR - MDRD 99 (>89); GLUCOSE 113 mg/dL (70-100); HDL CHOLESTEROL 46 mg/dL; LDL CHOLESTEROL,CALCULATED 177 mg/dL; LDL/HDL RATIO 3.8 (<3.6); POTASSIUM 3.8 mmol/L (3.5-5.0); SODIUM 139 mmol/L (135-145); TOTAL PROTEIN 7.1 g/dL (6.7-8.2); TRIGLYCERIDES 148 mg/dL; VLDL CHOLESTEROL 30 mg/dL
[2020-11-01 15:36] LABS: THYROID STIMULATING HORMONE 2.03 uIU/mL (0.34-5.60)
== END 2020-11-01 07:23 | disposition home or self-care (01) ==
LOC: LAB.S 07:22
PROVIDERS: ATTEND Physician Assistant
DX: Z00.00 Encounter for general adult medical examination without abnormal findings (principal); G47.33 Obstructive sleep apnea (adult) (pediatric); R89.9 Unspecified abnormal finding in specimens from other organs, systems and tissues; D72.819 Decreased white blood cell count, unspecified; Z79.01 Long term (current) use of anticoagulants; E78.00 Pure hypercholesterolemia, unspecified; I48.91 Unspecified atrial fibrillation; K51.90 Ulcerative colitis, unspecified, without complications; F41.9 Anxiety disorder, unspecified; F32.9 Major depressive disorder, single episode, unspecified
CPT/HCPCS: 36415; 80053; 80061; 83721; 84153; 84443; 85025

== ENCOUNTER 2022-02-25 08:00 | Outpatient (CLI) | payer OTHER ==
--- NOTE | 2023-02-25 13:32 | XRAY Report ---
PROCEDURE: Chest 2 View X-Ray INDICATIONS: ACUTE BRONCHOSPASM TECHNIQUE: 2 views of the chest were acquired. COMPARISON: None. FINDINGS: Surgical changes and devices: None. Lungs and pleura: No pleural effusions or pneumothorax. Lungs are clear. Mediastinum: Mediastinal contours appear normal. Heart size is normal. Bones and chest wall: No suspicious bony lesions. Overlying soft tissues appear unremarkable. IMPRESSION: No acute cardiopulmonary process. Reviewed by: Quincy Gunn on 02/25/2023 11:27 AM PDT Approved by: Quincy Gunn on 02/25/2023 11:27 AM PDT Station ID: [id number]
== END 2023-02-25 23:59 | disposition home or self-care (01) ==
LOC: DI.S 08:00
PROVIDERS: ATTEND Physician Assistant
DX: J98.01 Acute bronchospasm (principal)

== ENCOUNTER 2022-05-04 07:08 | Outpatient (CLI) | payer OTHER ==
[2022-05-04 15:33] LABS: BASOPHILS # (AUTO) 0.1 10^3/uL (0.0-0.1); BASOPHILS % (AUTO) 1.3 %; EOSINOPHILS # (AUTO) 0.2 10^3/uL (0.0-0.7); EOSINOPHILS % (AUTO) 5.2 %; HCT - HEMATOCRIT 41.4 % (42.0-52.0); HGB - HEMOGLOBIN 14.1 g/dL (14.0-18.0); LYMPHOCYTES # (AUTO) 1.6 10^3/uL (1.5-3.5); LYMPHOCYTES % (AUTO) 40.6 %; MEAN CORPUSCULAR HEMOGLOBIN 32.1 pg (27.0-31.0); MEAN CORPUSCULAR HGB CONC 34.1 g/dL (32.0-36.0); MEAN CORPUSCULAR VOLUME 94.3 fL (80.0-94.0); MEAN PLATELET VOLUME 10.3 fL (7.4-11.4); MONOCYTES # (AUTO) 0.5 10^3/uL (0.0-1.0); MONOCYTES % (AUTO) 12.4 %; NEUTROPHILS # (AUTO) 1.6 10^3/uL (1.5-6.6); NEUTROPHILS % (AUTO) 40.2 %; PLT - PLATELET COUNT 243 10^3/uL (130-450); RED BLOOD COUNT 4.39 10^6/uL (4.70-6.10); RED CELL DISTRIBUTION WIDTH 13.6 % (12.0-15.0); WHITE BLOOD COUNT 3.9 x10^3/uL (4.8-10.8)
[2022-05-04 15:47] LABS: ALBUMIN 3.9 g/dL (3.2-5.5); ALBUMIN/GLOBULIN RATIO 1.3 (1.0-2.2); ALKALINE PHOSPHATASE 56 IU/L (42-121); ALT ALANINE AMINOTRANSFERASE 22 IU/L (10-60); AST ASPARTATE AMINOTRANSFERASE 21 IU/L (10-42); BILIRUBIN,TOTAL 0.9 mg/dL (0.2-1.0); BUN - BLOOD UREA NITROGEN 20 mg/dL (6-20); CALCIUM 9.1 mg/dL (8.5-10.3); CARBON DIOXIDE - CO2 27 mmol/L (21-32); CHLORIDE 105 mmol/L (101-111); CHOLESTEROL 250 mg/dL; CREATININE 0.7 mg/dL (0.6-1.2); GFR - MDRD 115 (>89); GLUCOSE 96 mg/dL (70-100); HDL CHOLESTEROL 50 mg/dL; LDL CHOLESTEROL,CALCULATED 183 mg/dL; LDL/HDL RATIO 3.7 (<3.6); SODIUM 138 mmol/L (135-145); TOTAL PROTEIN 6.9 g/dL (6.7-8.2); TRIGLYCERIDES 85 mg/dL; VLDL CHOLESTEROL 17 mg/dL
[2022-05-04 16:01] LABS: THYROID STIMULATING HORMONE 1.97 uIU/mL (0.34-5.60)
== END 2022-05-04 07:09 | disposition home or self-care (01) ==
LOC: LAB.S 07:08
PROVIDERS: ATTEND Registered Nurse
DX: Z00.00 Encounter for general adult medical examination without abnormal findings (principal); E78.5 Hyperlipidemia, unspecified
CPT/HCPCS: 36415; 80053; 80061; 83721; 84153; 84443; 85025

== ENCOUNTER 2023-08-19 07:15 | Outpatient (CLI) | payer OTHER ==
[2023-08-19 14:11] LABS: BASOPHILS # (AUTO) 0.1 10^3/uL (0.0-0.1); BASOPHILS % (AUTO) 1.2 %; EOSINOPHILS # (AUTO) 0.3 10^3/uL (0.0-0.7); EOSINOPHILS % (AUTO) 5.4 %; HCT - HEMATOCRIT 43.8 % (42.0-52.0); HGB - HEMOGLOBIN 14.8 g/dL (14.0-18.0); LYMPHOCYTES # (AUTO) 2.4 10^3/uL (1.5-3.5); LYMPHOCYTES % (AUTO) 42.3 %; MEAN CORPUSCULAR HEMOGLOBIN 31.9 pg (27.0-31.0); MEAN CORPUSCULAR HGB CONC 33.8 g/dL (32.0-36.0); MEAN CORPUSCULAR VOLUME 94.4 fL (80.0-94.0); MEAN PLATELET VOLUME 10.3 fL (7.4-11.4); MONOCYTES # (AUTO) 0.7 10^3/uL (0.0-1.0); MONOCYTES % (AUTO) 11.3 %; NEUTROPHILS # (AUTO) 2.3 10^3/uL (1.5-6.6); NEUTROPHILS % (AUTO) 39.5 %; PLT - PLATELET COUNT 263 10^3/uL (130-450); RED BLOOD COUNT 4.64 10^6/uL (4.70-6.10); RED CELL DISTRIBUTION WIDTH 13.5 % (12.0-15.0); WHITE BLOOD COUNT 5.8 x10^3/uL (4.8-10.8)
[2023-08-19 14:35] LABS: ALBUMIN 4.2 g/dL (3.2-5.5); ALBUMIN/GLOBULIN RATIO 1.6 (1.0-2.2); ALKALINE PHOSPHATASE 57 IU/L (42-121); ALT ALANINE AMINOTRANSFERASE 17 IU/L (10-60); AST ASPARTATE AMINOTRANSFERASE 19 IU/L (10-42); BILIRUBIN,TOTAL 0.5 mg/dL (0.2-1.0); BUN - BLOOD UREA NITROGEN 21 mg/dL (6-20); CALCIUM 9.6 mg/dL (8.5-10.3); CARBON DIOXIDE - CO2 30 mmol/L (21-32); CHLORIDE 106 mmol/L (101-111); CHOL/HDL RATIO 5.3 (<5.0); CHOLESTEROL 249 mg/dL; CREATININE 0.8 mg/dL (0.6-1.3); GFR - MDRD 98 (>89); GLUCOSE 110 mg/dL (74-104); HDL CHOLESTEROL 47 mg/dL; LDL CHOLESTEROL,CALCULATED 166 mg/dL; LDL/HDL RATIO 3.5 (<3.6); POTASSIUM 4.2 mmol/L (3.5-4.5); SODIUM 142 mmol/L (135-145); TOTAL PROTEIN 6.8 g/dL (6.4-8.9); TRIGLYCERIDES 181 mg/dL (48-352); VLDL CHOLESTEROL 36 mg/dL
== END 2023-08-19 07:16 | disposition home or self-care (01) ==
LOC: LAB.S 07:15
PROVIDERS: ATTEND Registered Nurse
DX: E78.5 Hyperlipidemia, unspecified (principal); Z79.899 Other long term (current) drug therapy
CPT/HCPCS: 36415; 80053; 80061; 83721; 85025

== ENCOUNTER 2024-01-23 11:14 | Day surgery (SDC) | payer OTHER ==
[~2024-01-23 11:14] MED LIST: DEXAMETHASONE 4 MG/ML VIAL ONE; LIDOCAINE-PF 2% 10 ML AMP SUBQ ONE; MIDAZOLAM 2 MG/2 ML VIAL ONE; ONDANSETRON 4 MG/2 ML VIAL ONE; PROPOFOL 200 MG/20 ML VIAL IVP ONE; ceFAZolin 2 GM VIAL ONE; fentaNYL 100 MCG/2 ML VIAL ONE
[2024-01-23] MEDS ORDERED: BUPIVACAINE 0.25% PF 30 ML VIAL ONE (11:30)
[2024-01-23] MEDS: LACTATED RINGERS 1,000 ML IV ONE ×3 (11:36→15:37)
--- NOTE | 2024-01-23 13:11 | ANESTHESIA ---
Pre-Anesthesia VS, & Labs - Diagnosis umbilical hernia - Procedure umbilical hernia repair with mesh Vital Signs: Temp Pulse Resp BP Pulse Ox O2 Flow Rate 36.1 C L 71 14 145/85 H 96 01/23/24 11:31 01/23/24 11:31 01/23/24 11:31 01/23/24 11:31 01/23/24 11:31 Height: 6 ft 1 in Weight (kg): 89 kg Body Mass Index: 25.9 BMI Classification: Overweight - NPO >8 hours Home Medications and Allergies Home Medications: Ambulatory Orders Alpha Lipoic Acid 100 mg PO DAILY 01/20/24 Ascorbic Acid [Vitamin C] 1,000 mg PO DAILY 01/20/24 Cholecalciferol [Vitamin D3] 50 mcg PO DAILY 01/20/24 Famotidine [Pepcid] 20 mg PO DAILY 01/20/24 Multivitamin 1 each PO DAILY 01/20/24 [place]-3/Dha/Epa/Fish Oil [Fish Oil 1,000 mg Softgel] 2 each PO DAILY 01/20/24 Vitamin K2 100 mcg PO DAILY 01/20/24 Mesalamine [Lialda] 1.2 gm ORAL DAILY 03/15/15 PARoxetine [Paxil] 20 mg ORAL DAILY 03/15/15 Rivaroxaban [Xarelto] 20 mg PO DAILY 09/19/16 Alpha Lipoic Acid 100 mg PO DAILY 01/20/24 Ascorbic Acid [Vitamin C] 1,000 mg PO DAILY 01/20/24 Cholecalciferol [Vitamin D3] 50 mcg PO DAILY 01/20/24 Famotidine [Pepcid] 20 mg PO DAILY 01/20/24 Multivitamin 1 each PO DAILY 01/20/24 [place]-3/Dha/Epa/Fish Oil [Fish Oil 1,000 mg Softgel] 2 each PO DAILY 01/20/24 Vitamin K2 100 mcg PO DAILY 01/20/24 Allergies/Adverse Reactions: Allergies Allergy/AdvReac Type Severity Reaction Status Date / Time No Known Drug Allergies Allergy Verified 12/14/17 21:10 Anes History & Medical History - Anesthetic History Anesthesia Complications: reports: No previous complications - Medical History Cardiovascular: reports: Deep vein thrombosis, Atrial fibrillation Pulmonary: reports: None, Other (PE) Gastrointestinal: reports: Colon polyps, Ulcerative colitis Urinary: reports: None Musculoskeletal: reports: None Endocrine/Autoimmune: reports: None Blood Disorders: reports: None Skin: reports: None Smoking Status: Never smoker - Surgical History General: reports: Appendectomy, Colonoscopy Eyes Ears Nose Throat (EENT): reports: Tonsil/Adenoidectomy Cardiothoracic: reports: Other Orthopedic: reports: Arthroscopic surgery, Carpal Tunnel surgery Exam General: Alert, Oriented x3 Dental: WNL Mouth Opening: Greater than 4 Fingerbreadths Neck Mobility: Normal Mallampati classification: II Thyromental Distance: greater than 6 cm Respiratory: Lungs clear Cardiovascular: Regular rate Plan Anesthesia Type: General, MAC Consent for Procedure(s) Verified and Reviewed: Yes Code Status: Attempt Resuscitation ASA classification: 2-Mild systemic disease Is this case an emergency?: No
[2024-01-23] MEDS ORDERED: ACETAMINOPHEN 1,000 MG/100 ML 1,000 MG/100 ML BAG IV ONE (14:21)
[2024-01-23] MEDS: BUPIVACAINE 0.25% PF 30 ML VIAL SUBQ ONE ×2 (14:36)
[2024-01-23] MEDS ORDERED: ENOXAPARIN 40 MG/0.4 ML SYRINGE SUBQ SCH (15:00)
[2024-01-23] MEDS ORDERED: HYDROmorphone 0.5 MG/0.5 ML SYRINGE IVP PRN ×2 (15:23→15:57)
[2024-01-23] MEDS ORDERED: HYDROcod/ACETAM 5/325 MG TABLET PO PRN (15:23)
[2024-01-23] MEDS ORDERED: ONDANSETRON 4 MG/2 ML VIAL IVP PRN ×2 (15:23→15:57)
--- NOTE | 2024-01-23 15:51 | OPERATIVE REPORT ---
Operative Report - General Procedure Date: 01/23/24 Planned Procedure: open umbilical hernia repair with mesh Pre-Op Diagnosis: umbilical hernia Procedure Performed: open umbilical hernia repair with mesh Post Op Diagnosis: 2.5 cm umbilical hernia - Procedure Note Primary Surgeon: jonas simmons Anesthesia Technique: General LMA Pathology: none Estimated Blood Loss (mL): 2 Drain/Tube Type: Other (none) Indications: painful hernia bulge Findings: 1 x 2 in polypropylene mesh preperitoneal Complications: none - Other Other Information/Narrative: The patient was prepped identified brought to the operating room and placed in supine position. Sequential compression devices were placed. Laryngeal mask anesthesia was induced. Lovenox was given subcutaneously. He was prepped and draped in a sterile fashion and given preoperative antibiotics. Local anesthetic was given throughout the procedure. A 1 cm incision was made vertical just cephalad of the umbilicus. Incision was extended left lateral of the umbilicus. Umbilical skin was sharply excised away from the hernia sac. Subcutaneous tissue was mobilized back from the fascial defect edge by 1 and half to 2 cm in all directions. The hernia sac or peritoneum was carefully released from the fascia with cutting current cautery. No hole in the top of the hernia sac was closed with a running 3-0 Vicryl suture. Preperitoneal space was carefully developed with blunt dissection. Hemostasis was assured. 2 inch tall by 1 inch wide polypropylene mesh was placed preperitoneal and secured with 8 interrupted 0 Ethibond sutures. Fascia was closed over the mesh with 3 point interrupted 0 Ethibond sutures. The mesh lay in good position without tension. Umbilical skin was tacked back down to fascia with an interrupted 2-0 Vicryl suture. Subcutaneous tissue was closed with interrupted 2-0 Vicryl suture. Buried interrupted subdermal 3-0 Vicryl sutures were then placed. Skin was closed with a running 4-0 Monocryl subcuticular suture. Dressing was applied. Tolerated the procedure well was awakened and brought to recovery in good condition.
[2024-01-23] MEDS ORDERED: fentaNYL 100 MCG/2 ML VIAL IVP PRN (15:57)
[2024-01-23] MEDS ORDERED: ATROPINE ABBOJECT 1 MG/10 ML SYRINGE IVP PRN (15:57)
[2024-01-23] MEDS ORDERED: MORPHINE 2 MG/ML CARPUJECT IVP PRN (15:57)
[2024-01-23] MEDS ORDERED: NALOXONE 0.4 MG/ML VIAL IVP PRN (15:57)
[2024-01-23] MEDS ORDERED: ePHEDrine 50 MG/ML VIAL IVP PRN (15:57)
[2024-01-23] MEDS ORDERED: LACTATED RINGERS 1,000 ML IV SCH (16:00)
[2024-01-23 16:17] VITALS: BP 136/89; O2SAT 100
== END 2024-01-23 11:15 | disposition home or self-care (01) ==
LOC: SDS 11:14
PROVIDERS: ATTEND Surgery
DX: K42.9 Umbilical hernia without obstruction or gangrene (principal); Z79.01 Long term (current) use of anticoagulants; Z86.718 Personal history of other venous thrombosis and embolism
CPT/HCPCS: 49591; C1781; J0131; J1650; J7120